=== PATIENT | male | born 1950 | race Caucasian/White ===

== ENCOUNTER → 2016-10-29 | Day surgery (SDC) | payer MEDICARE, BC ==
[~2016-10-29] MED LIST: ADVI200C5 PO; BUPIVACAINE HCL PF 0.5% 30 ML VIAL ONE; BUPIVACAINE HCL PF 0.75% 30 ML VIAL ONE; COZA100T PO; IBUP400T20 PO; LEXA20TA PO; TRIAMCINOLONE ACETONIDE 40 MG/ML VIAL I-ARTICULR ONE; [UNRECOGNIZED DRUG - CODE]; methylPREDNISolone ACETATE 40 MG/ML VIAL I-ARTICULR ONE
--- NOTE | 2016-10-31 07:46 | M6 ---
cc: EMILY CORADO M.D. DATE 10/29/2016 DATE OF 1950 PROCEDURE Fluoroscopically guided injection right lumbar facet joints (right L2-3, L3-4, L4-5 and L5-S1 facet joints). PROCEDURE NOTE History and physical was completed and signed. Consent was signed. Procedure site was marked. Medications were listed and reconciled. Pain score was recorded. Allergies were noted. Time out was taken. Fluoroscopy time was recorded where applicable. Sedation was administered or directed by Dr. Corado. The patient was given oxygen. The patient was monitored by a registered nurse. Total procedure time was greater than 15 minutes. IV was started, blood pressure cuff, pulse oximeter and EKG were applied. The patient was placed in the prone position on a Amor table. His back was prepped with alcohol and 10% Betadine solution and draped with sterile drapes. Fluoroscopy was used in a Anatoliy dog view to clearly visualize the right lumbar facet joints at L2-3, L3-4, L4-5 and L5-S1. Separate sterile 3-1/2-inch 25-gauge spinal needles were advanced into each one of these joints. There was negative aspiration for blood or any other type of fluid and the patient was given of 0.75% Marcaine and 10 mg of Kenalog at each location. Following this, the patient was taken to the recovery room with stable vital signs neurologically intact. He will be evaluated immediately and with followup to determine if he has a subjective decrease in his usual pain and a corresponding increase in his functional capabilities. WMD KIMMY Mckeon/MARCELINO /7:48 AM /7:33 AM
== END | disposition home or self-care (01) ==
LOC: PHSDC 06:45
PROVIDERS: ATTEND Pain Medicine Interventional Pain Medicine
DX: M54.5 Low back pain (principal)
CPT/HCPCS: 64493; 64494; 64495; J1030; J3301

== ENCOUNTER → 2017-11-19 | Day surgery (SDC) | payer MEDICARE, BC ==
[~2017-11-19] MED LIST changes: -ADVI200C5 PO; -BUPIVACAINE HCL PF 0.5% 30 ML VIAL ONE; -BUPIVACAINE HCL PF 0.75% 30 ML VIAL ONE; +CELE200C PO; +IBUP-232 PO; +IBUP1TAB5 PO; -IBUP400T20 PO; +LIDOCAINE HCL 1% 30 ML VIAL INFIL ONE; +MEPERIDINE HCL 25 MG/ML VIAL IV ONE; +MEPERIDINE HCL 50 MG/ML VIAL IV ONE; +MIDAZOLAM HCL 2 MG/2 ML VIAL IV ONE; +PROPOFOL 200 MG/20 ML AMP IV ONE; +SODIUM CHLORIDE 0.9% 10 ML VIAL ONE; -TRIAMCINOLONE ACETONIDE 40 MG/ML VIAL I-ARTICULR ONE; +XANA1TAB2 PO
--- NOTE | 2017-11-19 09:40 | M6 ---
cc: Bj Corado MD DATE: 11/19/2017 PROCEDURE PERFORMED: Radiofrequency ablation, bilateral lumbar facet joints (bilateral L3-L4, L4-L5, and L5-S1 facet joints). PROCEDURE NOTE: History and physical was completed and signed. Consent was signed. Procedure site was marked. Medications were listed and reconciled. Pain score was recorded. Allergies were noted. Time out was taken. Fluoroscopy time was recorded where applicable. Sedation was administered or directed by Dr. Corado. The patient was given oxygen. The patient was monitored by a registered nurse. Total procedure time was greater than 15 minutes. Three levels are being done because imaging studies show arthritis in all lumbar facet joints and because each facet joint is innervated by the medial branches from the nerves above and below that particular joint. The patient reported 50% or greater pain relief from previous diagnostic facet joint blocks done with fluoroscopic guidance. An IV was started, blood pressure cuff, pulse oximeter and EKG were applied. The patient was placed in the prone position on a Amor table, sedated with small amounts of Versed and fentanyl and proprofol titrated to effect. Vital signs were monitored and remained stable throughout the procedure. The lumbar area was scrubbed with antimicrobial solution, prepped with 10% Betadine solution, draped with sterile drapes. Fluoroscopy was used in a slightly oblique angle (Anatoliy dog view) to clearly visualize the target areas which were the cephalad most medial angle of the transverse processes as they met the pedicle in the anatomical location of the medial branch of the posterior primary ramus on the bilateral side at L3-L4, L4-L5 and L5-S1 facet joints. The skin was infiltrated with 1% Xylocaine using a 27 gauge needle. An insulated 20 gauge radiofrequency needle with a 10 mm curved tip was advanced to the above-mentioned target areas. Fluoroscopy was used to confirm the needle was properly placed and not near the nerve root. At no time did the patient report any paresthesias down the lower extremity. Once properly positioned thermal lesions took place at 80 degrees Centigrade x 100 seconds at each location. Then, a small amount of Depo-Medrol was injected at each location for a total of 40 mg of Depo-Medrol. Following this the patient was taken to the recovery room with stable vital signs, neurologically intact. W. MD KIMMY Self/MADAI , 08:46 AM , 09:06 AM
== END | disposition home or self-care (01) ==
LOC: PHSDC 06:48
PROVIDERS: ATTEND Pain Medicine Interventional Pain Medicine
DX: M54.5 Low back pain (principal); I10 Essential (primary) hypertension; I25.10 Atherosclerotic heart disease of native coronary artery without angina pectoris
CPT/HCPCS: 64635; 64636; 99152; 99153; J1030; J2175; J2250